=== PATIENT | female | born 1945 | race Caucasian/White ===

== ENCOUNTER → 2022-02-08 | Outpatient (CLI) | payer OTHER | LOC: ECHO 02-07 09:00 → NM 10:00 | DX: I25.119 Atherosclerotic heart disease of native coronary artery with unspecified angina pectoris (principal); R06.02 Shortness of breath; R07.9 Chest pain, unspecified | CPT/HCPCS: ECHO; 78452; 93017; 93306; A9502; J2785 ==

== ENCOUNTER 2022-03-10 22:24 | Emergency (ER) | payer OTHER ==
[2022-03-10 23:47] LABS: HEMOGLOBIN 10.8 gm/dl (12.3-15.3); RED BLOOD COUNT 3.46 M/UL (4.00-5.10); WHITE BLOOD COUNT 11.2 K/UL (4.5-11.0)
== END 2022-03-11 05:13 | disposition short-term general hospital (02) ==
LOC: ER1 22:24 → CDU 03-11 01:26 → ER1 03-11 05:13
PROVIDERS: Physician Assistant Medical
DX: R53.1 Weakness (principal); R41.82 Altered mental status, unspecified; R77.8 Other specified abnormalities of plasma proteins; N18.4 Chronic kidney disease, stage 4 (severe); E11.22 Type 2 diabetes mellitus with diabetic chronic kidney disease; I12.9 Hypertensive chronic kidney disease with stage 1 through stage 4 chronic kidney disease, or unspecified chronic kidney disease; E78.5 Hyperlipidemia, unspecified; I25.10 Atherosclerotic heart disease of native coronary artery without angina pectoris; Z86.73 Personal history of transient ischemic attack (TIA), and cerebral infarction without residual deficits; Z20.822 Contact with and (suspected) exposure to COVID-19
CPT/HCPCS: 70450; 71045; 80053; 81001; 82550; 82553; 82962; 83605; 84484; 85025; 85610; 85730; 87040; 93005; 99285; U0002